=== PATIENT | male | born 1990 | race Caucasian/White ===

== ENCOUNTER 2019-03-21 05:15 | Emergency (ER) | payer BC, OTHER ==
[~2019-03-21] VITALS: Ht 182.9 cm; Wt 95.6 kg
[2019-03-21] MEDS ORDERED: KETOROLAC 30 MG/1 ML ONE (05:38)
[2019-03-21] MEDS ORDERED: DIAZEPAM 5 MG TABLET ONE (05:38)
--- NOTE | 2019-03-21 05:48 | NUR ---
PT MEDICATED PER MAR. POC DISCUSSED. PT AND FRIEND DENY FURTHER NEEDS AT THIS TIME.
[2019-03-21] MEDS ORDERED: KETOROLAC 30 MG/1 ML IM ONE (06:00)
[2019-03-21] MEDS ORDERED: DIAZEPAM 5 MG TABLET PO ONE ×2 (06:00)
[2019-03-21] MEDS ORDERED: ONDANSETRON ODT 4 MG ONE (06:25)
[2019-03-21] MEDS ORDERED: HYDROmorphone 1 MG/ML, 1ML INJ ONE (06:25)
[2019-03-21] MEDS ORDERED: HYDROmorphone 1 MG/ML, 1ML INJ IM ONE (06:30)
[2019-03-21] MEDS ORDERED: ONDANSETRON ODT 4 MG PO ONE (06:30)
--- NOTE | 2019-03-21 06:34 | NUR ---
PT ABLE TO AMBULATE A FEW STEPS HOWEVER STATES THE PAIN IS STILL PRESENT. PT STATES LARGE IMPROVEMENT FROM EARLIER.
[2019-03-21 06:41] VITALS: BP 129/76
--- NOTE | 2019-03-21 06:41 | NUR ---
AWAITING OR PAPERWORK
--- NOTE | 2019-03-21 08:23 | NUR ---
Patient given discharge instructions and they have confirmed that they understand the instructions.
== END 2019-03-21 08:24 | disposition home or self-care (01) ==
LOC: ED 05:52
DX: S39.012A Strain of muscle, fascia and tendon of lower back, initial encounter (principal); X50.1XXA Overexertion from prolonged static or awkward postures, initial encounter; Y93.89 Activity, other specified; Y92.89 Other specified places as the place of occurrence of the external cause; Y99.8 Other external cause status
CPT/HCPCS: 96372; 99283; J1170; J1885; Q0162